=== PATIENT | male | born 1930 | race Caucasian/White ===

== ENCOUNTER 2017-07-04 01:06 | Inpatient (IN) ==
[2017-07-04] MEDS ORDERED: GI Cocktail 40 ML EACH PO ONE (01:10)
--- NOTE | 2017-07-04 01:13 | Emergency Department Note ---
Disposition Clinical Impression: Atypical chest pain, Epigastric pain Pancreatitis Qualifiers: Chronicity: acute Pancreatitis type: unspecified pancreatitis type Acute pancreatitis complication: unspecified Qualified Code(s): K85.90 - Acute pancreatitis without necrosis or infection, unspecified Disposition: Admitted As Inpatient Condition: Good Referrals: Phan Prasad MD [Primary Care Provider] - Forms: ED Satisfaction Letter Chest Pain HPI - General Chief Complaint: ED Chest Pain Stated Complaint: Chest pain onset 45 minutes Time Seen by Provider: 07/04/17 01:10 Source: patient, EMS Mode of arrival: EMS Limitations: no limitations Vital Signs Reviewed: Yes Nursing Notes Reviewed: Yes - History of Present Illness HPI Narrative: Patient relates that he started with some pain across his epigastric region at about 10:30 PM. He states this feels like a fullness and extends across to both upper quadrants of his abdomen where he feels "blowed up". He denies numbness radiates to the back they did have one brief pain to his left arm. He has had some mild shortness of breath but no diaphoresis or nausea. Pain has not been affected by motion or position. He did try nitroglycerin without relief. Denies associated cough, fevers, chills or any lower extremity swelling or pain. Evidently weakness or dizziness. EMS did administer nitroglycerin without relief and gave her 4 baby aspirin. He relates he still has similar pain as a 6 on a scale of 1-10 and points to the epigastric region. He does indicate that he believes this is similar pain that he had when he did have a myocardial event. Pt complaint: chest pain, other (Epigastric and upper abdominal pain) Onset (ago): hour(s) (45) Onset: during rest Pain Location: epigastric Severity: moderate Severity scale (1-10): 6 Quality: dull, similar to prior [place], other ("Feels blowed up") Pain Radiation: LUE (Brief) Improves with: nothing Worsens with: nothing Associated symptoms: Reports: dyspnea. Denies: nausea, vomiting, diaphoresis, syncope, palpitations, fever, cough, leg swelling Treatments prior to arrival chest pain: aspirin, nitroglycerin - Related Data Home Medications Medication Instructions Recorded Confirmed Carbidopa/Levodopa ER 50/200 1 tab PO BID 11/09/14 07/04/17 [Sinemet ER 50-200 Tab] Omeprazole [PriLOSEC] 20 mg PO DAILY 11/09/14 07/04/17 Latanoprost [Xalatan] 1 drop RIGHT EYE HS 09/25/15 07/04/17 Polyvinyl Alcohol [Artificial 1 drop OP PRN PRN 09/25/15 07/04/17 Tears] Atorvastatin [Lipitor] 40 mg PO DAILY 06/15/16 07/04/17 Levothyroxine Sodium [Synthroid] 100 mcg PO DAILY 07/04/17 07/04/17 Metoprolol [Lopressor] 12.5 mg PO BID 07/04/17 07/04/17 Multivit-Min/FA/Lycopen/Lutein 1 each PO DAILY 07/04/17 07/04/17 [Centrum Silver Tablet] Previous Rx's Medication Instructions Recorded Clopidogrel [Plavix] 75 mg PO DAILY 30 Days tablet 12/20/15 Nitroglycerin 0.4 mg SL Q5MIN PRN #3 tab.subl 12/20/15 Allergies Allergy/AdvReac Type Severity Reaction Status Date / Time naproxen Allergy Itching Verified 07/04/17 01:15 All systems ED: reviewed and negative except as stated. Chest Pain PMH - Past Medical History Medical history: Reports: arthritis, GERD, glaucoma, hyperlipidemia, hypertension, myocardial infarction, renal disease, thyroid disease, other ( Parkinsonism) Surgical history: Reports: angioplasty/stent (Circumflex), appendectomy, knee replacement Psychiatric history: Reports: anxiety Prior Cardiac Testing/Procedures: Stenting - Social History Smoking Status: Former smoker Alcohol use: Reports: none Drug use: Reports: none Physical Exam - General Limitations: no limitations General appearance: alert, in no apparent distress - Head Head exam: atraumatic, normocephalic, normal inspection - Eye Eye exam: Present: normal appearance, PERRL, EOMI. Absent: scleral icterus, conjunctival injection - ENT ENT exam: normal exam, normal oropharynx, mucous membranes moist - Neck Neck exam: Present: normal inspection, full ROM, trachea midline - Chest Chest inspection: Present: normal inspection, symmetric chest wall rise. Absent : tenderness - Respiratory Respiratory exam: Present: normal lung sounds bilaterally. Absent: respiratory distress, wheezes, prolonged expiratory phase - Cardiovascular Cardiovascular exam: Present: regular rate, normal rhythm, normal heart sounds. Absent: JVD - Abdominal Exam Abdominal exam: Present: soft, normal bowel sounds. Absent: distention, guarding, rebound, rigidity, Nation's sign, tenderness at McBurney's Point, pulsatile mass Abdominal tenderness: Present: epigastrium, moderate - Extremities Exam Extremities exam: Present: normal inspection, full ROM, normal capillary refill. Absent: tenderness, pedal edema, calf tenderness - Expanded Lower Extremity Exam Neurovascular/Tendon exam: Present: normal capillary refill. Absent: motor deficit, sensory deficit, tendon deficit Gait: not tested/not observed - Neurological Exam Neurological exam: Present: alert. Absent: motor sensory deficit - Psychiatric Psychiatric exam: Present: normal affect, normal mood - Skin Skin exam: Present: warm, dry, intact, normal color. Absent: diaphoresis, pallor Course Course Narrative: 0130: Patient relates that his pain has "cold down some" after a Tylenol and a GI cocktail. EKG and chest x-ray are unremarkable. We are awaiting return of laboratory testing. 0200: With return of lab work, care is discussed with Dr. Wang who is agreeable with maintaining the patient nothing by mouth except medications and ice chips. Verbal orders are obtained for her observation. This is discussed with the patient. Vital Signs Temperature 97.9 F 07/04/17 01:08 Pulse Rate 65 07/04/17 01:08 Respiratory Rate 18 07/04/17 01:08 Blood Pressure 149/83 07/04/17 01:08 O2 Sat by Pulse Oximetry 97 07/04/17 01:08 Temperature 97.9 F 07/04/17 01:08 Pulse Rate 64 07/04/17 01:40 Respiratory Rate 16 07/04/17 01:40 Blood Pressure 134/61 07/04/17 01:40 O2 Sat by Pulse Oximetry 96 07/04/17 01:40 Oxygen Delivery Oxygen Delivery Room Air Chest Pain - Differential Diagnosis Likely: atypical chest pain (Pancreatitis), chest pain - Medical Records Medical records reviewed: Yes I reviewed the patient's medical records. Echocardiogram Name: Albino Kraus Date of Study: 06/16/2016 Date: 1930 Reading Physician: Sammi Joshi DO Food Service Order Clerk: Sharla Duggan Ordering Physician: Sylvester Landry MD Primary Physician: Robert Crandall MD Indications: Pericardial Effusion Impressions: LVEF 55%. Normal appearing LV size and wall thickness. RV is normal in size and function. Mild mitral regurgitation. Based on images provided, there is trivial to small pericardial fluid present. RV size and function are normal. There is no collapse of the right sided chambers. IVC is not visualized. Blood pressure is normal. Overall, there does not appear to be a significant amount of pericardial fluid and no findings suggesting tamponade. Per cardiology: -KNown history of CAD. -[facility] December 2015 with LM 30% stenosis, LAD 50% proximal, 30% mid LAD, Circumflex 99% with ARIN, 30% proximal RCA, 60% distal RCA, 70% ostial portion of PDA> - Lab Data Lab results reviewed: Yes I reviewed the patient's lab results. Result diagrams: 07/04/17 01:07/04/17 01: Lab Results 07/04/17 07/04/17 07/04/17 Range/Units 01:19 01:19 01:19 WBC 7.4 (4.3-11.1) K/mcL RBC 4.44 (4.19-5.50) M/mcL Hgb 12.8 L (12.9-16.9) g/dL Hct 39.1 (37.5-50.1) % MCV 88.1 (83.0-100.0) fL MCH 28.8 (28.0-33.3) pg MCHC 32.7 (31.6-35.5) g/dL RDW 13.4 (11.5-14.5) % Plt Count 198 (140-400) K/mcL MPV 10.4 (9.4-12.4) fL Immature Gran % 1.0 (0-4) % Seg Neutrophils % 70.2 % Lymphocytes % 18.5 % Monocytes % 6.7 % Eosinophils % 3.1 % Basophils % 0.5 % Neutrophils # 5.2 (1.6-8.9) K/mcL Lymphocytes # 1.4 (0.6-4.6) K/mcL Monocytes # 0.5 (0.0-1.3) K/mcL Eosinophils # 0.2 (0.0-0.6) K/mcL Basophils # 0.0 (0.0-0.2) K/mcL PT 11.3 (9.4-12.1) Seconds INR 1.1 APTT 33.2 (26.0-36.0) Seconds Sodium (136-145) mEq/L Potassium (3.5-5.1) mEq/L Chloride (98-107) mEq/L Carbon Dioxide (23-29) mEq/L BUN (8-23) mg/dL Creatinine (0.70-1.30) mg/dL Est GFR ( Amer) (> 60) Est GFR (Non-Af Amer) (> 60) BUN/Creatinine Ratio (6-26) Glucose (70-105) mg/dL Calculated Osmolality (280-300) Calcium (8.6-10.3) mg/dL Total Bilirubin 0.7 (0.3-1.0) mg/dL Direct Bilirubin 0.2 (0.0-0.2) mg/dL Indirect Bilirubin 0.5 (0.0-1.2) mg/dL AST 37 (13-39) Units/L ALT 11 (7-52) Units/L Alkaline Phosphatase 67 (34-104) Units/L Troponin I (< 0.04) ng/mL Serum Total Protein 6.7 (6.4-8.9) g/dL Albumin 4.0 (3.5-5.7) g/dL Globulin 2.7 (2.4-3.5) g/dL Albumin/Globulin Ratio 1.5 (1.1-2.2) Amylase 1031 H (29-103) Units/L 04/20/18 Range/Units 01:19 WBC (4.3-11.1) K/mcL RBC (4.19-5.50) M/mcL Hgb (12.9-16.9) g/dL Hct (37.5-50.1) % MCV (83.0-100.0) fL MCH (28.0-33.3) pg MCHC (31.6-35.5) g/dL RDW (11.5-14.5) % Plt Count (140-400) K/mcL MPV (9.4-12.4) fL Immature Gran % (0-4) % Seg Neutrophils % % Lymphocytes % % Monocytes % % Eosinophils % % Basophils % % Neutrophils # (1.6-8.9) K/mcL Lymphocytes # (0.6-4.6) K/mcL Monocytes # (0.0-1.3) K/mcL Eosinophils # (0.0-0.6) K/mcL Basophils # (0.0-0.2) K/mcL PT (9.4-12.1) Seconds INR APTT (26.0-36.0) Seconds Sodium 141 (136-145) mEq/L Potassium 3.9 (3.5-5.1) mEq/L Chloride 105 (98-107) mEq/L Carbon Dioxide 31 H (23-29) mEq/L BUN 21 (8-23) mg/dL Creatinine 1.42 H (0.70-1.30) mg/dL Est GFR ( Amer) 57 L (> 60) Est GFR (Non-Af Amer) 47 L (> 60) BUN/Creatinine Ratio 15 (6-26) Glucose 137 H (70-105) mg/dL Calculated Osmolality 297 (280-300) Calcium 9.2 (8.6-10.3) mg/dL Total Bilirubin (0.3-1.0) mg/dL Direct Bilirubin (0.0-0.2) mg/dL Indirect Bilirubin (0.0-1.2) mg/dL AST (13-39) Units/L ALT (7-52) Units/L Alkaline Phosphatase (34-104) Units/L Troponin I < 0.03 (< 0.04) ng/mL Serum Total Protein (6.4-8.9) g/dL Albumin (3.5-5.7) g/dL Globulin (2.4-3.5) g/dL Albumin/Globulin Ratio (1.1-2.2) Amylase (29-103) Units/L - Radiology Data Radiology results reviewed: Yes I reviewed the patient's radiology results. Single view chest x-ray is performed. This does not demonstrate evidence for infiltrate, effusion, pneumothorax, foreign body or heart failure. The cardiac silhouette is normal. I do not see abnormality to the osseous structures of the chest. This is on my interpretation. - EKG Data EKG attestation: Yes I reviewed and interpreted this EKG. EKG shows normal: sinus rhythm, axis, intervals, ST-T waves Rate: normal (62) [place]/QRS: RBBB Interpretation: no acute changes Heart Score - Score History: Moderately Suspicious EKG: Non Specific repolarisation Disturbance Age: Greater than 65 Risk Factors: Equal/Greater than 3 risk factor or history of atherosclerotic disease Troponin: Less than normal limit HEART Score Total: 6
[2017-07-04 01:33] LABS: INR 1.1; Prothrombin Time 11.3 Seconds (9.4-12.1)
[2017-07-04 01:36] LABS: Activated Partial Thrombo Time 33.2 Seconds (26.0-36.0)
[2017-07-04 01:44] LABS: Basophils % 0.5 %; Eosinophils # 0.2 K/mcL (0.0-0.6); Eosinophils % 3.1 %; Hematocrit 39.1 % (37.5-50.1); Hemoglobin 12.8 g/dL (12.9-16.9); Lymphocytes # 1.4 K/mcL (0.6-4.6); Lymphocytes % 18.5 %; Mean Corpuscular HGB Conc 32.7 g/dL (31.6-35.5); Mean Corpuscular Hemoglobin 28.8 pg (28.0-33.3); Mean Corpuscular Volume 88.1 fL (83.0-100.0); Mean Platelet Volume 10.4 fL (9.4-12.4); Monocytes # 0.5 K/mcL (0.0-1.3); Monocytes % 6.7 %; Neutrophils # 5.2 K/mcL (1.6-8.9); Platelet Count 198 K/mcL (140-400); Red Blood Count 4.44 M/mcL (4.19-5.50); Red Cell Distribution Width 13.4 % (11.5-14.5); Segmented Neutrophils % 70.2 %
[2017-07-04 01:46] LABS: Albumin/Globulin Ratio 1.5 (1.1-2.2); Bilirubin,Direct 0.2 mg/dL (0.0-0.2); Bilirubin,Indirect 0.5 mg/dL (0.0-1.2); Bilirubin,Total 0.7 mg/dL (0.3-1.0); Globulin 2.7 g/dL (2.4-3.5); Total Protein 6.7 g/dL (6.4-8.9); Troponin I < 0.03 ng/mL (< 0.04)
[2017-07-04 01:47] LABS: BUN/Creatinine Ratio 15 (6-26); Blood Urea Nitrogen 21 mg/dL (8-23); Calcium 9.2 mg/dL (8.6-10.3); Carbon Dioxide 31 mEq/L (23-29); Chloride 105 mEq/L (98-107); Glucose 137 mg/dL (70-105); Osmolality,Calculated 297 (280-300); Potassium 3.9 mEq/L (3.5-5.1); Sodium 141 mEq/L (136-145); eGFR For African Americans 57 (> 60); eGFR For Non-African Americans 47 (> 60)
[2017-07-04] MEDS ORDERED: 0.9 % Sodium Chloride 1,000 ML IVC SCH (02:00)
[2017-07-04] MEDS ORDERED: Ondansetron 4 MG/2 ML VIAL IVP ONE (02:31)
[2017-07-04] MEDS ORDERED: Nitroglycerin 0.4 MG TAB.SUBL SL PRN (02:48)
[2017-07-04] MEDS ORDERED: *HR* HYDROcodone/Acet 5/325 mg TABLET PO PRN (02:48)
[2017-07-04] MEDS ORDERED: Artificial Tears SOLN 15 ML BOTTLE OP PRN (02:48)
[2017-07-04] MEDS ORDERED: *HR* Nalbuphine 10 MG/ML AMPUL IV PRN (02:48)
[2017-07-04] MEDS ORDERED: Ondansetron 4 MG/2 ML VIAL IVP PRN (02:48)
[2017-07-04] MEDS ORDERED: Naloxone 0.4 MG/ML INJ IVP PRN (02:48)
[2017-07-04] MEDS: 0.9 % Sodium Chloride 1,000 ML IVC SCH ×2 (03:15→07:38)
[2017-07-04] MEDS ORDERED: 0.9 % Sodium Chloride 500 ML IVC ONE (03:17)
[2017-07-04] MEDS: Multivit/Ca/Min/Fe/FA 1 TAB TABLET PO SCH (08:58)
[2017-07-04] MEDS: Carbidopa/Levodopa ER 50/200 TABLET PO SCH ×2 (08:58→21:08)
--- NOTE | 2017-07-04 12:05 | Internal Med History&Physical ---
Date of Encounter: 07/04/17 Time of Encounter: 11:30 Assessment and Plan (1) Pancreatitis Current visit: Yes Status: Acute Etiology not obvious. Will check triglyceride level in a.m. Will advance diet as tolerated and monitor pancreatic enzymes. Qualifiers: Chronicity: acute Pancreatitis type: unspecified pancreatitis type Acute pancreatitis complication: unspecified Qualified Code(s): K85.90 - Acute pancreatitis without necrosis or infection, unspecified (2) Gout Current visit: Yes Status: Chronic Uric acid level was 11.1 on 07/11/2014. We will recheck in a.m. Qualifiers: Gout site: unspecified site Gout etiology: unspecified cause Chronicity: unspecified Qualified Code(s): M10.9 - Gout, unspecified (3) Hypothyroidism Current visit: No Status: Chronic TSH was suppressed at 0.123 on 10/21/2016. We will recheck in a.m. Qualifiers: Hypothyroidism type: unspecified Qualified Code(s): E03.9 - Hypothyroidism , unspecified (4) Hyperlipidemia Current visit: No Status: Chronic We will check lipid profile in a.m. Qualifiers: Hyperlipidemia type: mixed hyperlipidemia Qualified Code(s): E78.2 - Mixed hyperlipidemia (5) Hypertension Current visit: No Status: Chronic Continue Lopressor and monitor blood pressure. Qualifiers: Hypertension type: essential hypertension Qualified Code(s): I10 - Essential (primary) hypertension (6) Anemia Current visit: No Status: Acute Will order anemia testing in a.m. Qualifiers: Anemia type: unspecified type Qualified Code(s): D64.9 - Anemia, unspecified (7) Chronic kidney disease Current visit: No Status: Acute He was unaware of this. We will monitor renal indices. Qualifiers: Chronic kidney disease stage: stage 3 (moderate) Qualified Code(s): N18.3 - Chronic kidney disease, stage 3 (moderate) (8) Nodule of left lung Current visit: Yes Status: Acute Chest CT 06/15/2016 showed a new 1.1 cm sub-solid left upper lobe nodule. We will repeat chest CT Internal Medicine - H&P: HPI Chief complaint: Abdominal pain Admitted From: Emergency Dept Plans for Post Hospital Care: Home History of present illness: Mr. Kraus is a 86 year old male who came to emergency room stating he had abrupt onset of discomfort in his epigastric area approximately 10 PM while lying in bed. It did not radiate and there was no dyspnea or cough. He took a Nitrostat without relief. He called the squad and was brought to emergency room. Evaluation showed elevated amylase and lipase on lab results and probable pancreatitis on abdominal CT scan. He was admitted to [facility] floor for ongoing care needs. He states he feels significantly improved at present time. He has had no further vomiting since a single episode in emergency room. He denies previous diagnosis of pancreatitis. He states he has not drunk alcohol in 35 years has had no history of biliary disease. He has history of hyperlipidemia and takes Lipitor. He denies abdominal trauma or OTC drug use other than rare Tylenol. He denies disorders of his liver or exocrine pancreas. Past Med Surg Social Fam HX - Past Medical History Medical history: arthritis, GERD, glaucoma, hyperlipidemia, hypertension, myocardial infarction, renal disease, thyroid disease, other Psychiatric history: anxiety - Past Surgical History Surgical History: angioplasty/stent, appendectomy, knee replacement - Social History Smoking Status: Former smoker Smokeless Tobacco Status: Yes Alcohol use: none Drug use: none - Family History Father Adopted: No Living Status: Hx Family Cardiac Disorders: Yes Mother Adopted: No Family Member Ethnicity: Non- Living Status: Internal Medicine - H&P: Meds Carbidopa/Levodopa ER 50/200 [Sinemet ER 50-200 Tab] 1 tab PO BID 11/09/14 [ History] Omeprazole [PriLOSEC] 20 mg PO DAILY 11/09/14 [History] Latanoprost [Xalatan] 1 drop RIGHT EYE HS 09/25/15 [History] Polyvinyl Alcohol [Artificial Tears] 1 drop OP PRN PRN 09/25/15 [History] Clopidogrel [Plavix] 75 mg PO DAILY 30 Days tablet 12/20/15 [Rx] Nitroglycerin 0.4 mg SL Q5MIN PRN #3 tab.subl 12/20/15 [Rx] Atorvastatin [Lipitor] 40 mg PO DAILY 06/15/16 [History] Levothyroxine Sodium [Synthroid] 100 mcg PO DAILY 07/04/17 [History] Metoprolol [Lopressor] 12.5 mg PO BID 07/04/17 [History] Multivit-Min/FA/Lycopen/Lutein [Centrum Silver Tablet] 1 each PO DAILY 07/04/17 [History] 3 Allergy/AdvReac Type Severity Reaction Status Date / Time naproxen Allergy Itching Verified 07/04/17 01:15 All Systems PM: A 10-system review of systems was performed and is negative for pertinent findings except as documented above in the HPI. Review of systems: Gen.: His weight is increased from 79 kg on 06/18/2016 to 87.78 kg on admission now Cardiovascular: He has history of hypertension. He has known ASHD status post [place] December 2015 with a single ARIN placed in the circumflex. There was 30% stenosis in LMCA, 50% stenosis in proximal LAD, 30% stenosis in mid LAD, 99% stenosis in circumflex (stented), 30% stenosis in proximal RCA, 60% stenosis in distal RCA, and 70% stenosis in ostial portion of PDA. An echocardiogram 2016 showed LVEF of 55% small pericardial effusion present. There was mild mitral regurgitation. He denies DVT or pulmonary embolus. Respiratory: He smoked from age [age] up to 1-1/2 packs per day. He denies chronic lung disease and does not use home oxygen GI: As per history of present illness : He was unaware he had chronic kidney disease. He denies other kidney or bladder problems. He had prostate cancer (?) several years ago and received treatment and he believes he is cancer free. Neurologic: He has history of RLS. He denies large distribution strokes or seizures. 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 Endocrine: He has hypothyroidism and hyperlipidemia but denies diabetes Hematology/oncology: He had prostate CA as per above. He has anemia. He denies other internal malignancies. He has had skin cancers removed from his face. 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 - Constitutional Vitals: Temp Pulse Resp BP Pulse Ox 98.5 F 56 12 136/63 94 07/04/17 10:40 07/04/17 10:40 07/04/17 10:40 07/04/17 10:40 07/04/17 10:40 Exam: Gen.: He is a well-developed well-nourished male lying quietly in bed who appears in no significant distress HEENT: Head is atraumatic and normocephalic. Eyes: EOMI. There is no scleral icterus. Mouth: Mucosa is moist. Neck: Supple and nontender. There is no thyromegaly or adenopathy noted. Heart: Regular without murmurs gallops or ectopics Lungs: No wheezes or crackles are heard. Abdomen: Bowel sounds are present. The abdomen is nontender to palpation. No masses or guarding are noted. Extremities: There is no cyanosis edema or clubbing noted. Dorsalis pedis and posterior tibial pulses are trace to 1+ palpable bilaterally. He has DJD changes of his hands. He is wearing long underwear. Neurologic: Mental status: He is talkative and a good historian. Cranial nerves : Smile is symmetric. Forehead wrinkles bilaterally. Tongue protrudes midline. EOMI. Motor: There is no pronator drift. Cerebellar: Finger to nose is intact bilaterally. Skin: Warm and dry. He has scars on his face from skin cancer removal. Internal Med - H&P Results - Labs CBC & Chem 7: 07/04/17 01:19 07/04/17 01:19 Labs: Cardiac Enzymes 07/04/17 Range/Units 05:51 Troponin I < 0.03 (< 0.04) ng/mL - Impressions ITS Impressions Abdomen/Pelvis CT 07/04/17 03:21 IMPRESSION: 1. Right upper quadrant inflammation may represent duodenitis/ulcer disease or pancreatitis. 2. Diverticulosis without scan evidence for diverticulitis. 3. Enlarged prostate gland. D/ / Bennett Medina MD / Bennett Medina MD Interpreting Provider: Bennett Medina MD
[2017-07-04] MEDS: 0.45 % Sodium Chloride w/KCl 20 MEQ/1,000 ML MLS IVC SCH (14:42)
--- NOTE | 2017-07-04 15:20 | Electrocardiograph Report ---
[place] [address] Test Date: 2017-07-04 Pat Name: Albino Kraus Department: 9202 Room: [facility] Gender: M Automatic Mounter: [id number] : 1930 Requested By: [id number] Order Number: [id number] Reading MD: Sammi Joshi Measurements Intervals [place] Rate: 53 P: 61 LA: 202 QRS: 47 QRSD: 157 T: 57 QT: 478 QTc: 460 Interpretive Statements SINUS BRADYCARDIA RIGHT BUNDLE BRANCH BLOCK [120+ ms QRS DURATION, UPRIGHT V1, 40+ ms S IN I/aVL/V4/V5/V6] Electronically Signed On 07-04-2017 15:19:13 EDT by Sammi Joshi
--- NOTE | 2017-07-04 15:20 | Electrocardiograph Report ---
[address] [address] Test Date: 2017-07-04 Pat Name: Albino Kraus Department: 9201 Room: [facility] Gender: M Brake Adjuster: Jaxon : 1930 Requested By: [id number] Order Number: [id number] Reading MD: Sammi Joshi Measurements Intervals [place] Rate: 62 P: 36 GA: 173 QRS: 47 QRSD: 150 T: 36 QT: 442 QTc: 448 Interpretive Statements SINUS RHYTHM RIGHT BUNDLE BRANCH BLOCK Electronically Signed On 07-04-2017 15:18:24 EDT by Sammi Joshi
[2017-07-04] MEDS: *HR* Enoxaparin 40 MG/0.4 ML SYRINGE SQ SCH (16:53)
[2017-07-04] MEDS: Latanoprost 2.5 ML BOTTLE RIGHT EYE SCH (21:08)
[2017-07-05] MEDS: 0.45 % Sodium Chloride w/KCl 20 MEQ/1,000 ML MLS IVC SCH ×2 (04:25→18:11)
[2017-07-05 05:56] LABS: Chol/HDL Ratio 4.5 (0-4.9)
[2017-07-05] MEDS ORDERED: *HR* Enoxaparin 40 MG/0.4 ML SYRINGE SQ SCH (06:00)
[2017-07-05 06:11] LABS: Thyroid Stimulating Hormone 0.807 mcIU/mL (0.340-5.600)
[2017-07-05] MEDS: *HR* Enoxaparin 40 MG/0.4 ML SYRINGE SQ SCH (06:14)
[2017-07-05] MEDS: Multivit/Ca/Min/Fe/FA 1 TAB TABLET PO SCH (08:14)
[2017-07-05] MEDS: Carbidopa/Levodopa ER 50/200 TABLET PO SCH ×2 (08:15→20:27)
[2017-07-05 10:30] LABS: Vitamin B12 317 pg/mL (250-1100)
[2017-07-05 10:33] LABS: Folate > 22.3 ng/mL (3.0-16.0)
--- NOTE | 2017-07-05 17:52 | Internal Med Progress Note ---
Date of Encounter: 07/05/17 Time of Encounter: 17:40 - Assessment and plan (1) Pancreatitis Current Visit: Yes Status: Acute Assessment and plan: July 05. Etiology not obvious. Clinically resolved. Triglyceride level was normal. Anticipate discharge home tomorrow. Qualifiers: Chronicity: acute Pancreatitis type: unspecified pancreatitis type Acute pancreatitis complication: unspecified Qualified Code(s): K85.90 - Acute pancreatitis without necrosis or infection, unspecified (2) Gout Current Visit: Yes Status: Chronic Assessment and plan: July 05. Uric acid level normal at 6.0. Qualifiers: Gout site: unspecified site Gout etiology: unspecified cause Chronicity: unspecified Qualified Code(s): M10.9 - Gout, unspecified (3) Hypothyroidism Current Visit: No Status: Chronic Assessment and plan: July 05. TSH was normal at 0.807. Qualifiers: Hypothyroidism type: unspecified Qualified Code(s): E03.9 - Hypothyroidism , unspecified (4) Hyperlipidemia Current Visit: No Status: Chronic Assessment and plan: July 05. Lipid profile showed total cholesterol 86, LDL 21, HDL 19, triglycerides 229, and total/HDL ratio 4.5. Qualifiers: Hyperlipidemia type: mixed hyperlipidemia Qualified Code(s): E78.2 - Mixed hyperlipidemia (5) Hypertension Current Visit: No Status: Chronic Assessment and plan: July 05. Blood pressure stable. Continue Lopressor. Qualifiers: Hypertension type: essential hypertension Qualified Code(s): I10 - Essential (primary) hypertension (6) Anemia Current Visit: No Status: Acute Assessment and plan: July 05. Anemia testing showed iron 43, transferrin saturation 16%, transferrin 192, ferritin 49, B12 317, and folate> 22.3. Will give trial of ferrous sulfate with vitamin C. Qualifiers: Anemia type: unspecified type Qualified Code(s): D64.9 - Anemia, unspecified (7) Chronic kidney disease Current Visit: No Status: Chronic Assessment and plan: July 05. Will monitor renal indices. Qualifiers: Chronic kidney disease stage: stage 3 (moderate) Qualified Code(s): N18.3 - Chronic kidney disease, stage 3 (moderate) (8) Nodule of left lung Current Visit: Yes Status: Acute Assessment and plan: July 05. Lung nodule stable compared to previous CT exam. A recommendation for repeat CT in 12 months. - Subjective Interval history: July 05. He has no new complaints and feels significantly improved. He denies residual abdominal pain now. He has tolerated food without difficulty. - Constitutional Vitals: Temp Pulse Resp BP Pulse Ox 98.5 F 60 18 147/67 95 07/05/17 14:30 07/05/17 14:30 07/05/17 14:30 07/05/17 14:30 07/05/17 14:30 Exam: He is sitting in a chair at bedside resting comfortably. His affect is bright and cheerful. I reviewed his medications. I reviewed pertinent lab results with him. Internal Medicine: Result - Labs CBC & Chem 7: 07/04/17 01:19 07/04/17 01:19 - ABG Interpretation ABG results: PT/INR, D-dimer PT 11.3 Seconds (9.4-12.1) 07/04/17 01:19 Consult Discharge Plan - Plan Referrals: Phan Prasad MD [Primary Care Provider] - 1 week
[2017-07-05] MEDS: Latanoprost 2.5 ML BOTTLE RIGHT EYE SCH (20:27)
[2017-07-06] MEDS: *HR* Enoxaparin 40 MG/0.4 ML SYRINGE SQ SCH (06:09)
[2017-07-06] MEDS ORDERED: Ascorbic Acid 500 MG TABLET PO SCH (06:30)
[2017-07-06 06:33] LABS: Basophils % 0.5 %; Eosinophils # 0.3 K/mcL (0.0-0.6); Eosinophils % 4.2 %; Hematocrit 30.5 % (37.5-50.1); Hemoglobin 10.2 g/dL (12.9-16.9); Immature Granulocytes % 0.2 % (0-4); Lymphocytes # 1.5 K/mcL (0.6-4.6); Lymphocytes % 25.8 %; Mean Corpuscular HGB Conc 33.4 g/dL (31.6-35.5); Mean Corpuscular Hemoglobin 29.3 pg (28.0-33.3); Mean Corpuscular Volume 87.6 fL (83.0-100.0); Mean Platelet Volume 10.6 fL (9.4-12.4); Monocytes # 0.6 K/mcL (0.0-1.3); Monocytes % 9.5 %; Neutrophils # 3.6 K/mcL (1.6-8.9); Platelet Count 145 K/mcL (140-400); Red Blood Count 3.48 M/mcL (4.19-5.50); Red Cell Distribution Width 13.4 % (11.5-14.5); Segmented Neutrophils % 59.8 %
[2017-07-06 06:54] LABS: BUN/Creatinine Ratio 15 (6-26); Blood Urea Nitrogen 20 mg/dL (8-23); Calcium 8.3 mg/dL (8.6-10.3); Carbon Dioxide 28 mEq/L (23-29); Chloride 109 mEq/L (98-107); Glucose 97 mg/dL (70-105); Osmolality,Calculated 293 (280-300); Potassium 3.8 mEq/L (3.5-5.1); Sodium 140 mEq/L (136-145); eGFR For African Americans > 60 (> 60); eGFR For Non-African Americans 50 (> 60)
[2017-07-06 07:33] VITALS: BP 128/63
[2017-07-06] MEDS: Carbidopa/Levodopa ER 50/200 TABLET PO SCH (08:05)
[2017-07-06] MEDS: Multivit/Ca/Min/Fe/FA 1 TAB TABLET PO SCH (08:05)
--- NOTE | 2017-07-06 09:16 | Discharge Summary ---
Date of Encounter: 07/06/17 Time of Encounter: 09:08 - Discharge Diagnosis (1) Pancreatitis Priority: Primary Status: Acute Qualifiers: Chronicity: acute Pancreatitis type: unspecified pancreatitis type Acute pancreatitis complication: unspecified Qualified Code(s): K85.90 - Acute pancreatitis without necrosis or infection, unspecified (2) Gout Priority: Secondary Status: Chronic Qualifiers: Gout site: unspecified site Gout etiology: unspecified cause Chronicity: unspecified Qualified Code(s): M10.9 - Gout, unspecified (3) Hypothyroidism Priority: Secondary Status: Chronic Qualifiers: Hypothyroidism type: unspecified Qualified Code(s): E03.9 - Hypothyroidism , unspecified (4) Hyperlipidemia Priority: Secondary Status: Chronic Qualifiers: Hyperlipidemia type: mixed hyperlipidemia Qualified Code(s): E78.2 - Mixed hyperlipidemia (5) Hypertension Priority: Secondary Status: Chronic Qualifiers: Hypertension type: essential hypertension Qualified Code(s): I10 - Essential (primary) hypertension (6) Anemia Priority: Secondary Status: Acute Qualifiers: Anemia type: unspecified type Qualified Code(s): D64.9 - Anemia, unspecified (7) Chronic kidney disease Priority: Secondary Status: Chronic Qualifiers: Chronic kidney disease stage: stage 3 (moderate) Qualified Code(s): N18.3 - Chronic kidney disease, stage 3 (moderate) (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 Kraus is a 86 year old male who came to emergency room stating he had abrupt onset of discomfort in his epigastric area approximately 10 PM while lying in bed. It did not radiate and there was no dyspnea or cough. He took a Nitrostat without relief. He called the squad and was brought to emergency room. Evaluation showed elevated amylase and lipase on lab results and probable pancreatitis on abdominal CT scan. He was admitted to [facility] for ongoing care needs. Initial orders were written by the emergency room physician. I saw him on July 04 and performed a history and physical. He had significant improvement in his pancreatitis within the first 24 hours. Diet was advanced and tolerated well. He was pain-free by the time of discharge. The etiology of pancreatitis was not determined. Anemia testing showed iron 43, transferrin saturation 16%, transferrin 192, ferritin 49, B12 317, and folate > 22.3. He will be given ferrous sulfate and vitamin C at discharge. Azotemia changed minimally during hospitalization with creatinine decreasing to 1.36 by day of discharge with estimated GFR 50. Chest CT was done to follow-up left upper lobe nodule seen on 06/15/2016 scan. There was a stable 11 mm groundglass left upper lobe nodule seen and stable 7 mm right upper lobe nodule likely benign given lack of change from previous study. Recommendation for repeat chest CT in 12 months was made. On July 06 he felt stable for discharge home. He will follow with his PCP Dr. Prasad within 1 week. - Time Spent with Patient Total time spent providing and/or coordinating discharge services: - Discharge Medications Prescriptions: Ascorbic Acid [Vitamin C] 500 mg PO DAILY #30 tablet Ferrous Sulfate 325 mg PO DAILY #30 tablet Home Medications: Carbidopa/Levodopa ER 50/200 [Sinemet ER 50-200 Tab] 1 tab PO BID 11/09/14 [ History] Omeprazole [PriLOSEC] 20 mg PO DAILY 11/09/14 [History] Latanoprost [Xalatan] 1 drop RIGHT EYE HS 09/25/15 [History] Polyvinyl Alcohol [Artificial Tears] 1 drop OP PRN PRN 09/25/15 [History] Clopidogrel [Plavix] 75 mg PO DAILY 30 Days tablet 12/20/15 [Rx] Nitroglycerin 0.4 mg SL Q5MIN PRN #3 tab.subl 12/20/15 [Rx] Atorvastatin [Lipitor] 40 mg PO DAILY 06/15/16 [History] Levothyroxine Sodium [Synthroid] 100 mcg PO DAILY 07/04/17 [History] Metoprolol [Lopressor] 12.5 mg PO BID 07/04/17 [History] Multivit-Min/FA/Lycopen/Lutein [Centrum Silver Tablet] 1 each PO DAILY 07/04/17 [History] Ascorbic Acid [Vitamin C] 500 mg PO DAILY #30 tablet 07/06/17 [Rx] Ferrous Sulfate 325 mg PO DAILY #30 tablet 07/06/17 [Rx] Allergies/Adverse Reactions: 3 Allergy/AdvReac Type Severity Reaction Status Date / Time naproxen Allergy Itching Verified 07/04/17 01:15 Date of admission: 07/04/17 13:41 Primary care physician: Phan Prasad MD - Constitutional Vitals: Temp Pulse Resp BP Pulse Ox 99.1 F 63 16 128/63 94 04/22/18 07:28 07/06/17 07:28 07/06/17 07:28 07/06/17 07:28 07/06/17 07:28 - Patient Status Disposition: Home, Self-Care Condition: Good Overall status at discharge: patient is progressing back to baseline - Discharge Instructions Follow Up With: Phan Prasad MD [Primary Care Provider] - 1 week - Diet and Activity Activity: resume usual activities as tolerated Diet: advance to your usual diet
== END 2017-07-06 11:10 | disposition home or self-care (01) | DRG 440 ==
LOC: EMEROOPIK 01:06 → INPPIK 01:06
PROVIDERS: ADMIT Internal Medicine; ATTEND Internal Medicine

== ENCOUNTER 2018-01-23 22:21 | Observation (INO) ==
--- NOTE | 2018-01-23 22:41 | Emergency Department Note ---
Disposition Clinical Impression: Abdominal pain Qualifiers: Abdominal location: epigastric Qualified Code(s): R10.13 - Epigastric pain Pancreatitis, acute Qualifiers: Pancreatitis type: biliary Acute pancreatitis complication: no infection or necrosis Qualified Code(s): K85.10 - Biliary acute pancreatitis without necrosis or infection Disposition: Admitted As Inpatient Condition: Undetermined Instructions: Abdominal Pain (ED), Pancreatitis (ED) Reasons to Return/Additional Instructions: Condition: Stable for discharge to home Reasons for return/additional instructions: If you had an EKG and/or an x-ray performed in the emergency department, it would be reviewed by the boatbuilder apprentice wood and/or radiologist. If the review changes your diagnoses or treatment you will be contacted at the phone number you provided. Note if your intial X-RAY was negative and pain persists or worsens, follow-up imaging may be indicated. If you had a specimen collected for a culture, a culture report takes about 48- 72 hours to generate a final results and you will be contacted if a change in treatment is needed. If you have been prescribed an antibiotic: Take it as instructed until it is all finished. If you cannot tolerate that medication for some reason, call your primary care provider for a replacement. If you received or were prescribed a medication that will cause drowsiness such as but not limited to tramadol, Phenergan, trazodone, diazepam, lorazepam, hydroxyzine, Xanax, hydrocodone, oxycodone, codeine or any other medications, you should not drive, drink alcohol or operate machinery that required you to be alert for at least 8 hours after taking that medication. If you smoke or chew tobacco products call and discuss with your primary care physician options to help you in the cessation in the case of tobacco products Blood pressure screening: When you had your blood pressure taken, if the top number was greater than 120 with a bottom number was greater than 80, it is highly recommended that you call your primary care provider to arrange to arrange follow-up for further evaluation of you blood pressure. Untreated elevated blood pressure may put she is at risk of stroke, coronary artery disease, heart attack, renal insufficiency and/or other life-threatening conditions. Dietary Counseling: It is important to follow low-salt, low-fat diet if you have high high blood pressure, heart diseases, diabetes, high cholesterol or any other risk factors. If you are diabetic, it is very important to monitor your blood sugar and carb and continue taking your diabetes medications. Health Maintenance: Follow CDC guidelines and exercise daily if you can or at least 3 times weekly or as recommended by your pcp. You may have multiple scripts and some may have been electronically sent. If you are given a printed prescription please also take this and when filling the prescription. If diagnoses may require multiple medications to treat and oral are important in your health care issues. Return if your condition worsens or if you have severe pain, fever, vomiting or difficulty breathing. If your symptoms do not resolve or becomes progressive you should contact your primary care physician or come back to the emergency department. If you experience any chest pain, palpitations, racing heart or shortness of breath you should come back to the emergency department. You must report any neurological deficits, such as, but not limited to headache, visual disturbances, neck stiffness, numbness, tingling, weakness or gait imbalance. Return to ER if experience any abdominal pain, urinary symptoms or bleeding. If you have fever and does not resolve with antipyretics you should come back to the emergency department. You should discuss your care with your primary care physician or come back to the emergency department if you have any concern regarding your health or feel that you need to be re evaluated and seen. If you need to find a physician: Go to the [email or web address] Or call: [facility]: [facility]: [phone] [facility]: [phone] Referrals: Phan Prasad MD [Primary Care Provider] - Forms: ED Satisfaction Letter, Work/School Release Time of Disposition: 00:23 (Dr Martin accepted pt at 12:15 am past midnight) Abdominal Pain HPI - General Chief Complaint: ED Abdominal Pain Stated Complaint: abdominal pain Time Seen by Provider: 01/23/18 22:29 Source: patient, EMS Nursing Notes Reviewed: Yes Vital Signs Reviewed: Yes - History of Present Illness HPI Narrative: Patient is a pleasant 87 yo male with past medical history significant for HTN, Thyroid dysfunction, Dyslipidemia and COPD who is presenting to [facility] Emergency Room with a chief complaint off abd pain and vomiting since 7 pm after he ate a pie. He vomited via EMS transport. He c/o mid epigastric pain rated ar 4/10 cramps like and associated with nausea. He denies ETOH or tobacco. Patient denies any fever, chills or night sweats. Pt also denies any eye pain or visual disturbances. There is no sore throat, nasal drainages or facial congestion. There is no chest pain, palpitations or racing heart. Pt also denies any shortness of breath, cough or chest congestion. There is no diarrhea. There is no urgency, frequency or dysuria. There is no muskulo- skeletal pain, arthralgia or back pain. Patient also denies any rash, edema or pruritus. There is no neurological manifestations, no headache, no vertigo or weakness. The patient also denies any anxiety, depression, hallucinations and has no homicidal or suicidal ideations. There is no polyuria, polydipsia or recent weight change. There is no easy bruising or bleeding. Review of other systems is otherwise negative except above. Pt Subjective Complaint: abdominal pain Onset (ago): hour(s) (3) Consistency: intermittent, now resolved Location: periumbilical, epigastric Pain Severity: moderate Pain Scale: 4 Quality: cramping - Related Data Home Medications Medication Instructions Recorded Confirmed Aspirin 81 mg PO DAILY 01/23/18 01/23/18 Atorvastatin [Lipitor] 40 mg PO HS 01/23/18 01/23/18 C/Sourcherry/Celery/Grape Seed 1 each PO DAILY 01/23/18 01/23/18 [Tart Price Capsule] Clopidogrel Bisulfate [Plavix] 75 mg PO DAILY 01/23/18 01/23/18 Levothyroxine [Synthroid] 100 mcg PO DAILY 01/23/18 01/23/18 Metoprolol [Lopressor] 25 mg PO BID 01/23/18 01/23/18 Omeprazole [PriLOSEC] 20 mg PO DAILY 01/23/18 01/23/18 Allergies Allergy/AdvReac Type Severity Reaction Status Date / Time naproxen Allergy Itching Verified 07/04/17 01:15 NSAIDS (Non-Steroidal Allergy Itching Verified 01/23/18 22:39 Anti-Inflamma All systems ED: reviewed and negative except as stated. Review of Systems: As Per HPI Constitutional: Denies: fever, chills, weakness, weight change Eyes: Denies: eye pain, eye discharge, vision change ENT ED: Denies: ear pain, throat pain, dental pain, hearing loss, epistaxis, congestion, dysphagia Cardiovascular: Denies: chest pain, palpitations, dyspnea on exertion, edema, syncope Respiratory: Denies: cough, dyspnea, wheezes, hemoptysis, stridor Gastrointestinal: Reports: abdominal pain, nausea, vomiting. Denies: diarrhea, constipation, hematemesis, melena, hematochezia Genitourinary: Denies: urgency, dysuria, frequency, hematuria Musculoskeletal: Denies: back pain, neck pain, arthralgia, myalgia Integumentary: Denies: rash, abrasion, lesions Neurological: Denies: headache, weakness, numbness, paresthesias, confusion, abnormal gait, vertigo Psychiatric: Denies: anxiety, depression, suicidal thoughts, homicidal thoughts, auditory hallucinations, visual hallucinations Endocrine: Denies: fatigue Hematological/Lymphatic: Denies: easy bleeding, easy bruising Allergic/Immunologic: Denies: facial swelling, urticaria Abdominal Pain PMH - Past Medical History Medical history: Reports: arthritis, GERD, glaucoma, hyperlipidemia, hypertension, myocardial infarction, renal disease, thyroid disease, other Male Surgical History: Reports: angioplasty/stent, coronary bypass (CABG), orthopedic, other Psychiatric history: Reports: anxiety - Social History Smoking status: Former smoker Alcohol use: Reports: none Drug use: Reports: none Physical Exam - General Limitations: no limitations General appearance: alert - Head Head exam: atraumatic, normocephalic, normal inspection - Eye Eye exam: Present: normal appearance, PERRL, EOMI - Expanded Eye Exam Pupils: Left: reactive - ENT ENT exam: normal exam, normal oropharynx, mucous membranes moist - Expanded ENT Exam External ear exam: Present: normal external inspection Mouth exam: Present: normal external inspection Teeth exam: Present: normal inspection Throat exam: Present: normal inspection - Neck Neck exam: Present: normal inspection, full ROM, trachea midline - Chest Chest inspection: Present: normal inspection, symmetric chest wall rise - Respiratory Respiratory exam: Present: normal lung sounds bilaterally - Cardiovascular Cardiovascular exam: Present: regular rate, normal rhythm, normal heart sounds - Abdominal Exam Abdominal exam: Present: soft, tenderness. Absent: Non-Tender, distention, guarding, rebound, rigidity - Extremities Exam Extremities exam: Present: normal inspection, full ROM. Absent: tenderness, pedal edema - Expanded Upper Extremity Exam Shoulder exam: Present: normal inspection, full ROM Arm exam: Present: normal inspection, full ROM Elbow exam: Present: normal inspection, full ROM Forearm/Wrist exam: Present: normal inspection, full ROM Hand exam: Present: normal inspection, full ROM Vascular exam: Normal: capillary refill, radial pulse - Expanded Lower Extremity Exam Hip/Pelvis exam: Present: normal inspection, full ROM Upper leg exam: Present: normal inspection, full ROM Knee exam: Present: normal inspection, full ROM Lower leg exam: Present: normal inspection, full ROM Ankle exam: Present: normal inspection, full ROM Foot/toe exam: Present: normal inspection, full ROM Neurovascular/Tendon exam: Absent: motor deficit, sensory deficit, tendon deficit - Back Exam Back exam: Present: normal inspection, full ROM. Absent: tenderness - Neurological Exam Neurological exam: Present: alert, oriented X3 - Expanded Neurological Exam Patient oriented to: Present: person, place, time Coma Scale Eye Opening: Spontaneous Coma Scale Motor Response: Obeys Commands Coma Scale Verbal Response: Oriented Coma Scale Total: 15 - Psychiatric Psychiatric exam: Present: normal affect, normal mood - Skin Skin exam: Present: warm, dry, intact, normal color Course Vital Signs Temperature 96.6 F L 01/23/18 22:25 Pulse Rate 56 01/23/18 22:25 Respiratory Rate 16 01/23/18 22:25 Blood Pressure 181/85 01/23/18 22:25 O2 Sat by Pulse Oximetry 99 01/23/18 22:25 Temperature 96.6 F L 01/23/18 22:25 Pulse Rate 52 01/23/18 23:31 Respiratory Rate 15 01/23/18 23:31 Blood Pressure 148/69 01/23/18 23:31 O2 Sat by Pulse Oximetry 98 01/23/18 23:31 Oxygen Delivery Oxygen Delivery Room Air Abdominal Pain - Differential Diagnosis Differential Diagnosis: Likely: calculus of kidney, constipation, di verticulitis, pancreatitis - Medical Records Medical records reviewed: Yes I reviewed the patient's medical records. - Lab Data Lab results reviewed: Yes I reviewed the patient's lab results. Result diagrams: 01/23/18 23:25 01/23/18 23:25 Lab Results 01/23/18 01/23/18 01/23/18 Range/Units 23:25 23:25 23:25 WBC 11.2 H (4.3-11.1) K/mcL RBC 4.32 (4.19-5.50) M/mcL Hgb 12.9 (12.9-16.9) g/dL Hct 39.7 (37.5-50.1) % MCV 91.9 (83.0-100.0) fL MCH 29.9 (28.0-33.3) pg MCHC 32.5 (31.6-35.5) g/dL RDW 13.3 (11.5-14.5) % Plt Count 173 (140-400) K/mcL MPV 10.4 (9.4-12.4) fL Immature Gran % 0.5 (0-4) % Seg Neutrophils % 80.7 % Lymphocytes % 9.7 % Monocytes % 7.2 % Eosinophils % 1.5 % Basophils % 0.4 % Neutrophils # 9.0 H (1.6-8.9) K/mcL Lymphocytes # 1.1 (0.6-4.6) K/mcL Monocytes # 0.8 (0.0-1.3) K/mcL Eosinophils # 0.2 (0.0-0.6) K/mcL Basophils # 0.0 (0.0-0.2) K/mcL PT 11.4 (9.4-12.1) Seconds INR 1.0 APTT 29.2 (26.0-36.0) Seconds Sodium 140 (136-145) mEq/L Potassium 3.3 L (3.5-5.1) mEq/L Chloride 104 (98-107) mEq/L Carbon Dioxide 24 (23-29) mEq/L BUN 17 (8-23) mg/dL Creatinine 1.43 H (0.70-1.30) mg/dL Est GFR ( Amer) 57 L (> 60) Est GFR (Non-Af Amer) 47 L (> 60) BUN/Creatinine Ratio 12 (6-26) Glucose 118 H (70-105) mg/dL Calculated Osmolality 293 (280-300) Calcium 9.1 (8.6-10.3) mg/dL Total Bilirubin 1.0 (0.3-1.0) mg/dL Direct Bilirubin 0.5 H (0.0-0.2) mg/dL Indirect Bilirubin 0.5 (0.0-1.2) mg/dL AST 94 H (13-39) Units/L ALT 10 (7-52) Units/L Alkaline Phosphatase 111 H (34-104) Units/L Troponin I < 0.03 (< 0.04) ng/mL Serum Total Protein 7.0 (6.4-8.9) g/dL Albumin 4.1 (3.5-5.7) g/dL Globulin 2.9 (2.4-3.5) g/dL Albumin/Globulin Ratio 1.4 (1.1-2.2) Amylase > 2000 H (29-103) Units/L Lipase > 1800 H (11-82) Units/L Urine Color (Yellow) Urine Clarity (Clear) Urine pH (5.0-8.0) pH Units Ur Specific [place] (1.010-1.025) Urine Protein (Neg-Trace) mg/dL Urine Glucose (UA) (Normal) mg/dL Urine Ketones (Negative) mg/dL Urine Blood (Negative) Urine Nitrite (Negative) Urine Bilirubin (Negative) Urine Urobilinogen (Normal) mg/dL Ur Leukocyte Esterase (Negative) Ur Culture Indicated? (NO) 01/23/18 Range/Units 23:48 WBC (4.3-11.1) K/mcL RBC (4.19-5.50) M/mcL Hgb (12.9-16.9) g/dL Hct (37.5-50.1) % MCV (83.0-100.0) fL MCH (28.0-33.3) pg MCHC (31.6-35.5) g/dL RDW (11.5-14.5) % Plt Count (140-400) K/mcL MPV (9.4-12.4) fL Immature Gran % (0-4) % Seg Neutrophils % % Lymphocytes % % Monocytes % % Eosinophils % % Basophils % % Neutrophils # (1.6-8.9) K/mcL Lymphocytes # (0.6-4.6) K/mcL Monocytes # (0.0-1.3) K/mcL Eosinophils # (0.0-0.6) K/mcL Basophils # (0.0-0.2) K/mcL PT (9.4-12.1) Seconds INR APTT (26.0-36.0) Seconds Sodium (136-145) mEq/L Potassium (3.5-5.1) mEq/L Chloride (98-107) mEq/L Carbon Dioxide (23-29) mEq/L BUN (8-23) mg/dL Creatinine (0.70-1.30) mg/dL Est GFR ( Amer) (> 60) Est GFR (Non-Af Amer) (> 60) BUN/Creatinine Ratio (6-26) Glucose (70-105) mg/dL Calculated Osmolality (280-300) Calcium (8.6-10.3) mg/dL Total Bilirubin (0.3-1.0) mg/dL Direct Bilirubin (0.0-0.2) mg/dL Indirect Bilirubin (0.0-1.2) mg/dL AST (13-39) Units/L ALT (7-52) Units/L Alkaline Phosphatase (34-104) Units/L Troponin I (< 0.04) ng/mL Serum Total Protein (6.4-8.9) g/dL Albumin (3.5-5.7) g/dL Globulin (2.4-3.5) g/dL Albumin/Globulin Ratio (1.1-2.2) Amylase (29-103) Units/L Lipase (11-82) Units/L Urine Color Yellow (Yellow) Urine Clarity Clear (Clear) Urine pH 6.0 (5.0-8.0) pH Units Ur Specific [place] 1.015 (1.010-1.025) Urine Protein Negative (Neg-Trace) mg/dL Urine Glucose (UA) Normal (Normal) mg/dL Urine Ketones Negative (Negative) mg/dL Urine Blood Negative (Negative) Urine Nitrite Negative (Negative) Urine Bilirubin Negative (Negative) Urine Urobilinogen Normal (Normal) mg/dL Ur Leukocyte Esterase Negative (Negative) Ur Culture Indicated? NO (NO) - Radiology Data Radiology results reviewed: Yes I reviewed the patient's radiology results. CT scan reveals thickened gall bladder only no evidence of pancreatitis per Ct scan
[2018-01-23] MEDS ORDERED: *HR* Morphine 2 MG/ML SYRINGE IVP ONE (22:43)
[2018-01-23] MEDS ORDERED: Ondansetron 4 MG/2 ML VIAL IVP ONE (22:43)
[2018-01-23] MEDS ORDERED: 0.9 % Sodium Chloride 1,000 ML IVC ONE (22:43)
[2018-01-23 23:30] LABS: Basophils % 0.4 %; Eosinophils # 0.2 K/mcL (0.0-0.6); Eosinophils % 1.5 %; Hematocrit 39.7 % (37.5-50.1); Hemoglobin 12.9 g/dL (12.9-16.9); Immature Granulocytes % 0.5 % (0-4); Lymphocytes # 1.1 K/mcL (0.6-4.6); Lymphocytes % 9.7 %; Mean Corpuscular HGB Conc 32.5 g/dL (31.6-35.5); Mean Corpuscular Hemoglobin 29.9 pg (28.0-33.3); Mean Corpuscular Volume 91.9 fL (83.0-100.0); Mean Platelet Volume 10.4 fL (9.4-12.4); Monocytes # 0.8 K/mcL (0.0-1.3); Monocytes % 7.2 %; Platelet Count 173 K/mcL (140-400); Red Blood Count 4.32 M/mcL (4.19-5.50); Red Cell Distribution Width 13.3 % (11.5-14.5); Segmented Neutrophils % 80.7 %
[2018-01-23 23:45] LABS: Activated Partial Thrombo Time 29.2 Seconds (26.0-36.0)
[2018-01-23 23:46] LABS: Prothrombin Time 11.4 Seconds (9.4-12.1)
[2018-01-23 23:54] LABS: Troponin I < 0.03 ng/mL (< 0.04)
[2018-01-23 23:55] LABS: Bilirubin,Urine Negative (Negative); Blood,Urine Negative (Negative); Clarity,Urine Clear (Clear); Color,Urine Yellow (Yellow); Glucose,Urine (UA) Normal (Normal); Ketones,Urine Negative (Negative); Leukocyte Esterase,Urine Negative (Negative); Nitrite,Urine Negative (Negative); Protein,Urine Negative (Neg-Trace); Specific Gravity,Urine 1.015 (1.010-1.025); Urobilinogen,Urine Normal (Normal)
[2018-01-24 00:03] LABS: Alanine Aminotransferase 10 Units/L (7-52); Albumin 4.1 g/dL (3.5-5.7); Albumin/Globulin Ratio 1.4 (1.1-2.2); Alkaline Phosphatase 111 Units/L (34-104); Amylase > 2000 Units/L (29-103); Aspartate Amino Transferase 94 Units/L (13-39); BUN/Creatinine Ratio 12 (6-26); Bilirubin,Direct 0.5 mg/dL (0.0-0.2); Bilirubin,Indirect 0.5 mg/dL (0.0-1.2); Blood Urea Nitrogen 17 mg/dL (8-23); Calcium 9.1 mg/dL (8.6-10.3); Carbon Dioxide 24 mEq/L (23-29); Chloride 104 mEq/L (98-107); Globulin 2.9 g/dL (2.4-3.5); Glucose 118 mg/dL (70-105); Osmolality,Calculated 293 (280-300); Potassium 3.3 mEq/L (3.5-5.1); Sodium 140 mEq/L (136-145); eGFR For Non-African Americans 47 (> 60)
[2018-01-24 00:09] LABS: Lipase > 1800 Units/L (11-82)
[2018-01-24] MEDS ORDERED: 0.9 % Sodium Chloride 1,000 ML IVC ONE (00:19)
[2018-01-24] MEDS ORDERED: Naloxone 0.4 MG/ML INJ IVP PRN ×2 (00:27→00:30)
[2018-01-24] MEDS ORDERED: 0.9 % Sodium Chloride 1,000 ML IVC SCH (00:30)
[2018-01-24] MEDS: *HR* HYDROcodone/Acet 5/325 mg TABLET PO PRN ×2 (08:20→15:42)
--- NOTE | 2018-01-24 15:04 | Internal Med History&Physical ---
Date of Encounter: 01/24/18 Time of Encounter: 14:30 Assessment and Plan (1) Abdominal pain Current visit: Yes Status: Acute Suspicious for pancreatitis although CT imaging did not show evidences of pancreatic inflammation. Pain is resolved now. Will advance diet and monitor labs. Qualifiers: Abdominal location: epigastric Qualified Code(s): R10.13 - Epigastric pain (2) Pancreatitis, acute Current visit: Yes Status: Acute as above Qualifiers: Pancreatitis type: biliary Acute pancreatitis complication: no infection or necrosis Qualified Code(s): K85.10 - Biliary acute pancreatitis without necrosis or infection (3) Hypothyroidism Current visit: No Status: Chronic TSH was normal at 2.146 on 08/14/2017. Continue present dose Synthroid. Qualifiers: Hypothyroidism type: unspecified Qualified Code(s): E03.9 - Hypothyroidism, unspecified (4) Hypertension Current visit: No Status: Chronic Hold Lopressor due to borderline hypotension. Qualifiers: Hypertension type: essential hypertension Qualified Code(s): I10 - Essential (primary) hypertension Internal Medicine - H&P: HPI Chief complaint: Abdominal pain and vomiting Admitted From: Emergency Dept Plans for Post Hospital Care: Home History of present illness: Mr. Kraus is a 87 year old male who came to emergency room stating he had gradual onset of abdominal pain approximately 8 PM while at leisure. He states it was quite severe and describes it as a dull ache in his midline and right upper abdominal area. He had nonbloody emesis. He then called the squad and states he had another episode of nonbloody emesis in the squad. He was evaluated in emergency room and was found to have significantly elevated amylase and lipase. He was admitted to [facility] floor for ongoing care needs. He states he is pain-free at present time. He was hospitalized at [facility] June 2017 with similar complaints. He reports that episode was his first and he has had no recurrence until the present time. He states he has not drunk alcohol in over 35 years. He has had no unusual diet changes. He had minimal hyperlip idemia found on labs done June 2017 hospitalization. He denies abdominal trauma or any unusual medication ingestion. He denies disorders of his liver gallbladder or exocrine pancreas otherwise. Past Med Surg Social Fam HX - Past Medical History Medical history: arthritis, GERD, glaucoma, hyperlipidemia, hypertension, myocardial infarction, renal disease, thyroid disease, other Additional medical history: Parkinsons Psychiatric history: anxiety - Past Surgical History Surgical History: coronary bypass (CABG), knee replacement, LE stent(s) Additional surgical history: CABG, cardiac stent. Bilateral knees - Social History Smoking Status: Former smoker Smokeless Tobacco Status: Yes Alcohol use: none Drug use: none - Family History Father Adopted: No Living Status: Hx Family Cardiac Disorders: Yes Mother Adopted: No Family Member Ethnicity: Non- Living Status: Internal Medicine - H&P: Meds Aspirin 81 mg PO DAILY 01/23/18 [History] Atorvastatin [Lipitor] 40 mg PO HS 01/23/18 [History] C/Sourcherry/Celery/Grape Seed [Tart Price Capsule] 1 each PO DAILY 01/23/18 [History] Clopidogrel Bisulfate [Plavix] 75 mg PO DAILY 01/23/18 [History] Levothyroxine [Synthroid] 100 mcg PO DAILY 01/23/18 [History] Metoprolol [Lopressor] 25 mg PO BID 01/23/18 [History] Omeprazole [PriLOSEC] 20 mg PO DAILY 01/23/18 [History] Allergy/AdvReac Type Severity Reaction Status Date / Time naproxen Allergy Itching Verified 07/04/17 01:15 NSAIDS (Non-Steroidal Allergy Itching Verified 01/23/18 22:39 Anti-Inflamma All Systems PM: A 10-system review of systems was performed and is negative for pertinent findings except as documented above in the HPI. Review of systems: Review of systems from his June 2017 [facility] hospitalization were reviewed and revised as below. Gen.: His weight is minimally changed from 87.798 kg on 07/04/2017 to present weight of 86.137 kg. Cardiovascular: He has history of hypertension. He has known ASHD status post NE December 2015 with a single ARIN placed in the circumflex. There was 30% stenosis in LMCA, 50% stenosis in proximal LAD, 30% stenosis in mid LAD, 99% stenosis in circumflex (stented), 30% stenosis in proximal RCA, 60% stenosis in distal RCA, and 70% stenosis in ostial portion of PDA. An echocardiogram 06/16/2016 showed LVEF of 55% small pericardial effusion present. There was mild mitral regurgitation. He denies DVT or pulmonary embolus. Respiratory: He smoked from age [age] up to 1-1/2 packs per day. He denies chronic lung disease and does not use home oxygen GI: As per history of present illness : He was unaware he had chronic kidney disease. He denies other kidney or bladder problems. He had prostate cancer (?) several years ago and received treatment and he believes he is cancer free. Neurologic: He has history of RLS. He denies large distribution strokes or seizures. 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 Endocrine: He has hypothyroidism and hyperlipidemia but denies diabetes Hematology/oncology: He had prostate CA as per above. He has history of anemia. He denies other internal malignancies. He has had skin cancers removed from his face. 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 - Constitutional Vitals: Temp Pulse Resp BP Pulse Ox 98.9 F 50 14 110/56 95 01/24/18 10:00 01/24/18 10:00 01/24/18 10:00 01/24/18 10:00 01/24/18 10:00 Exam: Gen.: He is a well-developed well-nourished male resting currently in bed who appears in no acute distress HEENT: Head is atraumatic and normocephalic. Eyes: EOMI. There is no sclerae icterus. Mouth: Mucosa is moist. Neck: Supple and nontender. There is no thyromegaly or adenopathy noted. Heart: Regular without murmurs gallops or ectopics Lungs: No wheezes or crackles are heard. Abdomen: Soft and nontender. No masses or guarding are noted. Extremities: There is no cyanosis edema or clubbing noted. Dorsalis pedis and posttibial pulses are 1-2 over 2 bilaterally. Neurologic: Mental status: He is talkative and a good historian. Cranial nerves : Smile is symmetric. Forehead wrinkles bilaterally. Tongue protrudes midline. EOMI. Motor: There is no pronator drift. Cerebellar: Finger to nose is intact bilaterally. Skin: Warm and dry Internal Med - H&P Results - Labs CBC & Chem 7: 01/23/18 23:25 01/23/18 23:25 Labs: Short CBC 01/23/18 Range/Units 23:25 WBC 11.2 H (4.3-11.1) K/mcL Hgb 12.9 (12.9-16.9) g/dL Hct 39.7 (37.5-50.1) % Plt Count 173 (140-400) K/mcL Neutrophils # 9.0 H (1.6-8.9) K/mcL BMP 01/23/18 23:25 Sodium 140 Potassium 3.3 L Chloride 104 Carbon Dioxide 24 BUN 17 Creatinine 1.43 H Glucose 118 H Calcium 9.1 Cardiac Enzymes 01/23/18 Range/Units 23:25 Troponin I < 0.03 (< 0.04) ng/mL Liver Function 01/23/18 Range/Units 23:25 Total Bilirubin 1.0 (0.3-1.0) mg/dL Direct Bilirubin 0.5 H (0.0-0.2) mg/dL AST 94 H (13-39) Units/L ALT 10 (7-52) Units/L Alkaline Phosphatase 111 H (34-104) Units/L Albumin 4.1 (3.5-5.7) g/dL Urine 01/23/18 Range/Units 23:48 Urine Color Yellow (Yellow) Urine Clarity Clear (Clear) Urine pH 6.0 (5.0-8.0) pH Units Ur Specific [place] 1.015 (1.010-1.025) Urine Protein Negative (Neg-Trace) mg/dL Urine Glucose (UA) Normal (Normal) mg/dL - Impressions ITS Impressions Abdomen/Pelvis CT 01/23/18 22:43 IMPRESSION: There is suspicion of gallbladder wall thickening not well evaluated without IV contrast. The gallbladder is moderately dilated and there are no calcified gallstones. Follow-up gallbladder ultrasound would be helpful. Small hiatal hernia. Few scattered colon diverticula with no evidence of diverticulitis. Mild prostatomegaly. Remote L1 compression fracture. D/ / Jorge Marmolejo MD / Jorge Marmolejo MD Interpreting Provider: Jorge Marmolejo MD
[2018-01-24] MEDS: 0.45 % Sodium Chloride w/KCl 20 MEQ/1,000 ML MLS IVC SCH (15:42)
[2018-01-25] MEDS: 0.45 % Sodium Chloride w/KCl 20 MEQ/1,000 ML MLS IVC SCH (01:56)
[2018-01-25 06:22] LABS: Basophils % 0.5 %; Eosinophils # 0.2 K/mcL (0.0-0.6); Eosinophils % 3.5 %; Hematocrit 32.3 % (37.5-50.1); Hemoglobin 10.5 g/dL (12.9-16.9); Immature Granulocytes % 0.2 % (0-4); Lymphocytes # 1.5 K/mcL (0.6-4.6); Lymphocytes % 27.1 %; Mean Corpuscular HGB Conc 32.5 g/dL (31.6-35.5); Mean Corpuscular Hemoglobin 29.8 pg (28.0-33.3); Mean Corpuscular Volume 91.8 fL (83.0-100.0); Mean Platelet Volume 10.8 fL (9.4-12.4); Monocytes # 0.5 K/mcL (0.0-1.3); Monocytes % 8.5 %; Neutrophils # 3.4 K/mcL (1.6-8.9); Platelet Count 140 K/mcL (140-400); Red Blood Count 3.52 M/mcL (4.19-5.50); Red Cell Distribution Width 13.9 % (11.5-14.5); Segmented Neutrophils % 60.2 %
[2018-01-25 06:40] VITALS: BP 142/65
[2018-01-25 06:42] LABS: Alanine Aminotransferase 21 Units/L (7-52); Albumin 3.2 g/dL (3.5-5.7); Albumin/Globulin Ratio 1.3 (1.1-2.2); Alkaline Phosphatase 66 Units/L (34-104); Amylase 294 Units/L (29-103); Aspartate Amino Transferase 26 Units/L (13-39); BUN/Creatinine Ratio 14 (6-26); Bilirubin,Total 0.6 mg/dL (0.3-1.0); Blood Urea Nitrogen 18 mg/dL (8-23); Carbon Dioxide 25 mEq/L (23-29); Chloride 108 mEq/L (98-107); Chol/HDL Ratio 5.1 (0-4.9); Cholesterol 87 mg/dL (< 200); Globulin 2.4 g/dL (2.4-3.5); Glucose 93 mg/dL (70-105); HDL Cholesterol 17 mg/dL (40-59); LDL Cholesterol,Calculated 11 mg/dL (0-99); Lipase 94 Units/L (11-82); Osmolality,Calculated 292 (280-300); Potassium 3.9 mEq/L (3.5-5.1); Sodium 140 mEq/L (136-145); Total Protein 5.6 g/dL (6.4-8.9); Triglycerides 295 mg/dL (< 150); eGFR For Non-African Americans 51 (> 60)
--- NOTE | 2018-01-25 09:33 | Discharge Summary ---
Date of Encounter: 01/25/18 Time of Encounter: 09:22 - Discharge Diagnosis (1) Pancreatitis, acute Priority: Primary Status: Acute Qualifiers: Pancreatitis type: biliary Acute pancreatitis complication: no infection or necrosis Qualified Code(s): K85.10 - Biliary acute pancreatitis without necrosis or infection (2) Abdominal pain Priority: Secondary Status: Resolved Qualifiers: Abdominal location: epigastric Qualified Code(s): R10.13 - Epigastric pain (3) Hypothyroidism Priority: Secondary Status: Chronic Qualifiers: Hypothyroidism type: unspecified Qualified Code(s): E03.9 - Hypothyroidism, unspecified (4) Hypertension Priority: Secondary Status: Chronic Qualifiers: Hypertension type: essential hypertension Qualified Code(s): I10 - Essential (primary) hypertension Hospital course: Mr. Kraus is a 87 year old male who came to emergency room stating he had gradual onset of abdominal pain approximately 8 PM while at leisure. He states it was quite severe and describes it as a dull ache in his midline and right upper abdominal area. He had nonbloody emesis. He then called the squad and states he had another episode of nonbloody emesis in the squad. He was evaluated in emergency room and was found to have significantly elevated amylase and lipase. He was admitted to [facility] floor for ongoing care needs. Initial orders were written by the emergency room physician. I saw him on January 24 and performed the history and physical. By the time I saw him he stated his abdominal pain was completely resolved. His diet was advanced and tolerated well. He had no recurrence of the pain. Follow-up lab work on January 25 showed normalization of WBC and resolution of left shift. Amylase and lipase improved to 294 and 94 respectively. Triglyceride level returned slightly elevated 295. The etiology of the pancreatitis was not determined. Potassium normalized to 3.9. Creatinine improved 1.33. Hemoglobin decrease slightly to 10.5 with IV fluids. His PCP can monitor this. On January 25 he felt stable for discharge home. He will follow with his PCP Dr.Ellis Prasad within 1 week. - Time Spent with Patient Total time spent providing and/or coordinating discharge services: - Discharge Medications Home Medications: Aspirin 81 mg PO DAILY 01/23/18 [History] Atorvastatin [Lipitor] 40 mg PO HS 01/23/18 [History] C/Sourcherry/Celery/Grape Seed [Tart Price Capsule] 1 each PO DAILY 01/23/18 [History] Clopidogrel Bisulfate [Plavix] 75 mg PO DAILY 01/23/18 [History] Levothyroxine [Synthroid] 100 mcg PO DAILY 01/23/18 [History] Metoprolol [Lopressor] 25 mg PO BID 01/23/18 [History] Omeprazole [PriLOSEC] 20 mg PO DAILY 01/23/18 [History] Allergies/Adverse Reactions: Allergy/AdvReac Type Severity Reaction Status Date / Time naproxen Allergy Itching Verified 07/04/17 01:15 NSAIDS (Non-Steroidal Allergy Itching Verified 01/23/18 22:39 Anti-Inflamma Date of admission: 01/24/18 00:37 Primary care physician: Phan Prasad MD - Constitutional Vitals: Temp Pulse Resp BP Pulse Ox 98.7 F 57 16 142/65 92 01/25/18 06:39 01/25/18 06:39 01/25/18 06:39 01/25/18 06:39 01/25/18 06:39 - Patient Status Disposition: Home, Self-Care Condition: Undetermined - Discharge Instructions Follow Up With: Phan Prasad MD [Primary Care Provider] - 1 week - Diet and Activity Activity: resume usual activities as tolerated Diet: advance to your usual diet
== END 2018-01-25 11:15 | disposition home or self-care (01) ==
LOC: EMEROOPIK 22:21 → INPPIK 22:21
PROVIDERS: ADMIT Internal Medicine; ATTEND Internal Medicine